=== PATIENT | male | born 1955 | race Asian ===

== ENCOUNTER 2017-11-14 09:07 | Outpatient (CLI) | payer BC, OTHER ==
--- NOTE | 2017-11-14 19:40 | XRay Report ---
FINAL REPORT EXAM: XR KNEE 4+V RT HISTORY: KNEE PAIN TECHNIQUE: Three views of the right knee PRIORS: None. FINDINGS: The bones are normally aligned and mineralized. There is severe narrowing of the lateral joint with prominent osteophyte formation. There is [id number] narrowing of the medial joint with meniscal calcification. A surgical anchor is present in the medial femoral condyle. There is osteophyte formation of the patellofemoral joint. There is no evidence of acute fracture. The soft tissues are unremarkable. 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
== END 2017-11-14 09:08 | disposition home or self-care (01) ==
LOC: XRAY 09:07
PROVIDERS: ATTEND Orthopaedic Surgery Sports Medicine
DX: M17.11 Unilateral primary osteoarthritis, right knee (principal); M11.261 Other chondrocalcinosis, right knee

== ENCOUNTER 2018-01-28 09:19 | Outpatient (CLI) | payer BC ==
--- NOTE | 2018-01-28 10:50 | XRay Report ---
XRAY RIGHT KNEE 4 THREE VIEWS: 01/28/18 CLINICAL: Right knee pain. COMPARISON: 11/14/17 FINDINGS: Status post total joint replacement since the last exam. Normal appearance of the prosthesis. A metal anchor in the medial femoral condyle is unchanged compared to the prior exam. Suspect a moderate size joint effusion. Moderate anterior and medial subcutaneous soft tissue edema.No soft tissue air. IMPRESSION: Status post total joint replacement. Moderate nonspecific subcutaneous soft tissue edema.
== END 2018-01-28 09:20 | disposition home or self-care (01) ==
LOC: SPVIMAG 09:19
PROVIDERS: ATTEND Orthopaedic Surgery Sports Medicine
DX: M25.561 Pain in right knee (principal); Z96.651 Presence of right artificial knee joint